=== PATIENT | female | born 1950 | race Caucasian/White ===

== ENCOUNTER → 2018-02-20 | Outpatient (CLI) | payer MEDICARE | END | disposition home or self-care (01) | LOC: RAD 12:22 | PROVIDERS: ATTEND Psychiatry & Neurology Neurology | DX: G31.89 Other specified degenerative diseases of nervous system (principal); G93.40 Encephalopathy, unspecified; F03.90 Unspecified dementia, unspecified severity, without behavioral disturbance, psychotic disturbance, mood disturbance, and anxiety | CPT/HCPCS: 70551 ==

== ENCOUNTER → 2018-11-24 | Outpatient (CLI) | payer MEDICARE | END | disposition home or self-care (01) | LOC: RAD 14:30 | PROVIDERS: ATTEND Physician Assistant | DX: S01.01XA Laceration without foreign body of scalp, initial encounter (principal); S09.90XA Unspecified injury of head, initial encounter; G31.9 Degenerative disease of nervous system, unspecified; I67.82 Cerebral ischemia; W19.XXXA Unspecified fall, initial encounter; Y93.89 Activity, other specified; Y92.89 Other specified places as the place of occurrence of the external cause; Y99.8 Other external cause status | CPT/HCPCS: 70450 ==

== ENCOUNTER 2019-01-31 23:38 | Emergency (ER) | payer MEDICARE ==
[~2019-01-31] VITALS: Ht 175.3 cm; Wt 88.1 kg
--- NOTE | 2019-01-31 23:46 | NUR ---
PT FOUND WONDERING IN THE STREETS, AT BEDSIDE, HX OF DEMENTIA. STATES HE NEEDS HELP, HE CANNOT TAKE CARE OF HER. STATES SHE HAS SUNDOWNING OFTEN IN THE EVENINGS.VIN CALVO AT BEDSIDE Addendum: 02/01/19 at 0030 by BDIJAYNA FOUND PT
[2019-02-01] MEDS ORDERED: CITA40TA5 PO (00:01)
[2019-02-01] MEDS ORDERED: DONE10TA7 PO (00:01)
[2019-02-01] MEDS ORDERED: ATOR-2 PO (00:01)
[2019-02-01 00:14] LABS: BASOPHILS # (AUTO) 0.04 x10^3/uL (0-0.1); BASOPHILS % (AUTO) 1 % (0-1); EOSINOPHILS % (AUTO) 4 % (1-7); LYMPHOCYTES # (AUTO) 1.95 x10^3/uL (1-3.4); LYMPHOCYTES % (AUTO) 36 % (22-44); MD NO; MEAN CORPUSCULAR HEMOGLOBIN 32.9 pg (27.0-34.8); MEAN CORPUSCULAR HGB CONC 33.5 g/dL (32.4-35.8); MEAN CORPUSCULAR VOLUME 98.1 fL (80-100); MEAN PLATELET VOLUME 7.8 fL (7.4-10.4); MONOCYTES # (AUTO) 0.48 x10^3/uL (0.2-0.8); MONOCYTES % (AUTO) 9 % (2-9); NEUTROPHILS # (AUTO) 2.77 x10^3/uL (1.8-6.8); NEUTROPHILS % (AUTO) 51 % (42-75); PLATELET COUNT 283 x10^3/uL (130-400); RED BLOOD COUNT 3.73 x10^6/uL (3.82-5.3); RED CELL DISTRIBUTION WIDTH 13.7 % (9.6-15.2)
[2019-02-01 00:22] LABS: ALANINE AMINOTRANSFERASE 19 U/L (12-78); ALBUMIN 3.5 g/dL (3.4-5.0); ANION GAP 9 mmol/L (5-15); CALCIUM 7.9 mg/dL (8.5-10.1); CHLORIDE 109 mmol/L (98-107)
--- NOTE | 2019-02-01 00:28 | NUR ---
PT STRAIGHT CATH'ED FOR URINE. PT TOLERATED PROCEDURE WELL. SPECIMEN WALKED TO LAB.
[2019-02-01 00:32] LABS: ALKALINE PHOSPHATASE 112 U/L (45-117); BILIRUBIN,TOTAL 0.2 mg/dL (0.2-1.0); TOTAL PROTEIN 7.5 g/dL (6.4-8.2)
[2019-02-01 00:36] LABS: MICROSCOPIC NOT IND
[2019-02-01 00:39] LABS: CULTURE INDICATED? NO
[2019-02-01 00:55] VITALS: BP 118/62
--- NOTE | 2019-02-01 01:09 | NUR ---
ER IN TO DISCUSS RESULTS WITH PT
== END 2019-02-01 01:32 | disposition home or self-care (01) ==
LOC: ED 02-01 00:09
DX: G30.1 Alzheimer's disease with late onset (principal); F02.81 Dementia in other diseases classified elsewhere, unspecified severity, with behavioral disturbance
CPT/HCPCS: 36415; 80053; 81003; 84443; 85025; 99284